=== PATIENT | female | born 1960 | race Caucasian/White ===

== ENCOUNTER → 2018-01-08 12:18 | Outpatient (CLI) | payer BC, SELFPAY ==
--- NOTE | 2018-01-08 12:26 | XR_ITS ---
EXAM: XR cervical spine 5V HISTORY: ITS.REASON: CERVICALGIA ORDERING PHYSICIAN: Evy Mortensen MD PATIENT AGE: 57 years COMPARISON: None FINDINGS: Normal alignment. No fracture or dislocation. No lytic or blastic change. No significant degenerative change. The disc spaces are preserved. There is some nonspecific calcification of the nuchal ligament at the C5 level IMPRESSION: Negative cervical spine
== END ==
PROVIDERS: PCP Family Medicine; Visit Provider Family Medicine
DX: M54.2 Cervicalgia (principal)
CPT/HCPCS: 72050

== ENCOUNTER → 2018-04-01 15:01 | Outpatient (CLI) | payer BC, SELFPAY ==
--- NOTE | 2018-04-01 15:06 | XR_ITS ---
XR chest 2V HISTORY: ITS.REASON: COUGH,RATTLING IN CHEST ORDERING PHYSICIAN: Evy Mortensen MD PATIENT AGE: 58 years COMPARISON: FINDINGS: The cardiomediastinal silhouette and pulmonary vascularity are within normal limits. Patchy infiltrate is present in the left lower lobe. The remaining lungs are clear. The hill are slightly prominent raising the suspicion of mild adenopathy. Follow-up recommended. Calcific tendinitis is present in both shoulders. There are degenerative changes in the thoracic spine. IMPRESSION: Left lower lobe pneumonia with possible hilar adenopathy. Recommend follow-up to confirm stability and/or resolution
== END ==
PROVIDERS: PCP Family Medicine; Visit Provider Family Medicine
DX: R05 Cough (principal); R09.89 Other specified symptoms and signs involving the circulatory and respiratory systems
CPT/HCPCS: 71046

== ENCOUNTER → 2018-04-16 15:28 | Outpatient (CLI) | payer BC, SELFPAY ==
--- NOTE | 2018-04-16 15:39 | XR_ITS ---
XR chest 2V HISTORY: ITS.REASON: PNEUMONIA ORDERING PHYSICIAN: Evy Mortensen MD PATIENT AGE: 58 years COMPARISON: 04/01/2019 FINDINGS: The cardiomediastinal silhouette and pulmonary vascularity are within normal limits. Left lower lobe pneumonia has shown improvement. There remains some atelectatic change with patchy density in the left lower lobe. Left hilum remains prominent. Hilar adenopathy or hilar mass is considered. Chest CT with contrast may be of further value.. No acute bony abnormalities. IMPRESSION: Improvement in left lower lobe pneumonia with some residual atelectatic change in the left lower lobe Persistent prominence of left hilum consistent with adenopathy or mass. CT with contrast may be of further value
== END ==
PROVIDERS: PCP Family Medicine; Visit Provider Family Medicine
DX: J18.1 Lobar pneumonia, unspecified organism (principal)
CPT/HCPCS: 71046

== ENCOUNTER → 2018-04-23 12:53 | Outpatient (CLI) | payer BC, SELFPAY ==
[2018-04-23 13:13] LABS: Blood Urea Nitrogen 16 mg/dL (7-18); Estimated Glomerular Filt Rate 74 ml/min (>60); GFR (African American) 89 ML/MIN (>60)
--- NOTE | 2018-04-23 13:21 | CT_ITS ---
CT chest w con HISTORY: Pneumonia, hilar adenopathy, abnormal chest x-ray ITS.REASON: ABNORMAL CXR,PNEUMONIA ORDERING PHYSICIAN: Evy Moretnsen MD PATIENT AGE: 58 years COMPARISON: 04/16/2018 TECHNIQUE: Axial images obtained following the administration of 75 mL of Isovue 370 . Sagittal, and coronal reformatted images are also generated and reviewed. All CT scans at the facility use one or more dose reduction, viz: automated exposure control; ma/kV adjustment per patient size (including targeted exams where dose is matched to indication; i.e. head); or iterative reconstruction technique. FINDINGS: There are scattered small mediastinal and hilar lymph nodes. Normal heart size. No evidence of pericardial effusion. No dominant adenopathy is evident. No hilar mass. There are some mild atelectatic or fibrotic changes in the right lower lobe. No central obstructing lesion. There is some residual increased density in the left lower lobe consistent with residual peribronchial inflammatory changes with atelectasis. No effusions. No suspicious pulmonary nodules. There is a small hiatal hernia. There is mild diffuse fatty liver infiltration. No acute bony anomalies. IMPRESSION: 1. Scattered small mediastinal and hilar lymph nodes. No dominant adenopathy or central obstructing lesion evident. Prominence of left hilum on the radiograph is felt to be secondary to the small nodes in overlying hilar vasculature. The nodes measure up to 1.5 cm. 2. Mild residual postinflammatory changes in the left lower lobe with atelectasis and mild coarsening of the bronchovascular markings 3. Small hiatal hernia
== END ==
PROVIDERS: PCP Family Medicine; Visit Provider Family Medicine
DX: J18.1 Lobar pneumonia, unspecified organism (principal)
CPT/HCPCS: 36415; 71260; 82565; 84520; Q9967

== ENCOUNTER → 2018-06-05 15:34 | Outpatient (POV) | payer BC, SELFPAY | DX: Z00.00 Encounter for general adult medical examination without abnormal findings (principal) ==

== ENCOUNTER → 2018-07-16 14:17 | Outpatient (CLI) | payer BC, SELFPAY ==
--- NOTE | 2018-07-16 14:23 | XR_ITS ---
XR shoulder RT min 2V HISTORY: ITS.REASON: ACUTE RT SHOULDER PAIN ORDERING PHYSICIAN: Evy Mortensen MD PATIENT AGE: 58 years Comparison: None FINDINGS: Moderate lobular calcification is noted superior to the humeral head superior to the greater tuberosity and along the posterior aspect of the humeral head. Consistent with calcific tendinitis of the supraspinatus and infraspinatus tendons. No acute fracture or dislocation evident. There is mild downsloping of the acromion with mild subacromial stenosis. IMPRESSION: Calcific tendinitis of the right shoulder Mild subacromial stenosis
--- NOTE | 2018-07-16 14:24 | XR_ITS ---
XR chest 2V HISTORY: December.REASON: HX PNEUMONIA ORDERING PHYSICIAN: Evy Mortensen MD PATIENT AGE: 58 years COMPARISON: [id number] FINDINGS: The cardiomediastinal silhouette and pulmonary vascularity are within normal limits. There remains mild prominence of left hilum which is not significantly changed Minimal atelectatic or fibrotic changes are present in the left lung base. Patchy density noted in the right midlung overlying the third rib and may be due to summation artifact from rib and vessel. The remaining lungs are clear. Mild kyphosis of the thoracic spine with mild degenerative change in the thoracic spine. IMPRESSION: No acute finding. Minimal left basilar atelectasis or fibrosis. Overall no change mild prominence of the left hilum
== END ==
PROVIDERS: PCP Family Medicine; Visit Provider Family Medicine
DX: M25.511 Pain in right shoulder (principal); Z87.01 Personal history of pneumonia (recurrent)
CPT/HCPCS: 71046; 73030

== ENCOUNTER → 2018-08-01 14:26 | Outpatient (POV) | payer BC, SELFPAY | PROVIDERS: Visit Provider Dermatology | DX: Z00.00 Encounter for general adult medical examination without abnormal findings (principal) ==

== ENCOUNTER 2019-04-09 14:00 | Outpatient (RCR) | payer BC, SELFPAY | END 2019-04-09 14:05 | disposition home or self-care (01) | LOC: PT 14:00 | PROVIDERS: Visit Provider Internal Medicine | DX: M25.511 Pain in right shoulder (principal); M25.551 Pain in right hip; M15.9 Polyosteoarthritis, unspecified | CPT/HCPCS: 97010; 97014; 97033; 97035; 97110; 97163; G0283 ==

== ENCOUNTER → 2020-08-04 14:59 | Outpatient (CLI) | payer BC, SELFPAY | PROVIDERS: PCP Family Medicine; Visit Provider Family Medicine | DX: R00.0 Tachycardia, unspecified (principal) | CPT/HCPCS: 93225; 93226 ==

== ENCOUNTER → 2020-08-09 12:45 | Outpatient (CLI) | payer BC, SELFPAY ==
--- NOTE | 2020-08-09 | CA_ITS ---
APPROVED REPORT EXAM: Comprehensive 2D, Doppler, and color-flow Echocardiogram [employer] Receptionist: Abbi Lombardo CRT Ht: 5 ft 4 in Wt: 195lbs BSA: 1.94 BP: 130/80 mmHg Indications: SVT, Tachycardia 2D Dimensions LVOT 1.94 cm (M/F) 1.5-2.5 M-Mode Dimensions RVDd 2.03 cm (0.9-2.6) LVDd 4.84 cm (3.5-5.7) LVDs 3.21 cm (3.5-5.7) IVSd 1.87 cm (0.6-1.1) PWd 0.69 cm (0.6-1.1) EF (Teich) 62.30% FS 33.70% EDV (Teich) 109.60 mL ESV (Teich) 41.30 mL LV Diastology E/A Ratio 1.27 Mitral Valve MV A Velocity 73.00 (40-130 cm/s) Left Ventricle Left atrium is mildly enlarged, left ventricle is normal size, left ventricle wall thickness is upper limit of the normal, there is preserved left ventricular systolic function, visually estimated ejection fraction 55% with no regional wall motion abnormality. Grade 1 diastolic dysfunction seen with tissue Doppler evidence of raise left atrial pressure. Right Ventricle Right atrium and right ventricle are normal size and contractility. Aortic Valve Aortic valve is minimally thickened and fibrosed, there is no aortic stenosis or aortic insufficiency. Mitral Valve Mitral valve is grossly normal, there is mild mitral regurgitation. Tricuspid Valve Tricuspid valve is grossly normal, there is mild tricuspid regurgitation, tricuspid regurgitation jet velocity is inadequate for calculation of the right ventricular systolic pressure. Pulmonic Valve Pulmonic valve is poorly visualized. Great Vessels Aortic root is normal size. Pericardium No significant pericardial effusion noted. Conclusion 1. Mildly enlarged left atrium, normal left ventricular size, mild concentric left ventricular hypertrophy, visually estimated ejection fraction 55% with no regional wall motion abnormality, grade 1 diastolic dysfunction seen with tissue Doppler evidence of raise left atrial pressure. 2. Mild mitral and tricuspid regurgitation. 3. No significant pericardial effusion noted. Electronically signed by : Basil Fry, 08/09/2020 21:53:06
== END ==
PROVIDERS: PCP Family Medicine; Visit Provider Family Medicine
DX: R00.0 Tachycardia, unspecified (principal)
CPT/HCPCS: 93306

== ENCOUNTER → 2021-01-05 12:52 | Outpatient (POV) | payer BC, SELFPAY | DX: Z00.00 Encounter for general adult medical examination without abnormal findings (principal) ==

== ENCOUNTER → 2021-02-02 15:46 | Outpatient (POV) | payer BC, SELFPAY | DX: Z00.00 Encounter for general adult medical examination without abnormal findings (principal) ==

== ENCOUNTER → 2022-02-17 13:03 | Outpatient (CLI) | payer BC, SELFPAY | PROVIDERS: Visit Provider Obstetrics & Gynecology | DX: N39.0 Urinary tract infection, site not specified (principal) | CPT/HCPCS: 87086 ==

== ENCOUNTER 2022-12-08 10:51 | Emergency (ER) | payer BC, SELFPAY ==
[2022-12-08 10:52] VITALS: BP 169/87; PULSE 84; RESP 18; TEMP 37.1; O2SAT 97; BMI 37.8
--- NOTE | 2022-12-08 11:30 | PC.NURSE ---
lab here for blood draw
[2022-12-08 11:59] LABS: Alanine Aminotransferase 26 U/L (12-78); Albumin Level 4.2 g/dl (3.5-5.0); Albumin/Globulin Ratio 1.2 (1.1-1.8); Alkaline Phosphatase 83 U/L (38-126); Aspartate Amino Transferase 31 U/L (14-36); Bilirubin,Total 0.5 mg/dl (0.2-1.3); Blood Urea Nitrogen 14 mg/dl (7-17); Calcium 8.7 mg/dl (8.4-10.2); Carbon Dioxide 26 mmol/L (22.0-30.0); Chloride 104 mmol/L (98-107); Creatinine Clearance Estimated 92 mL/min (50-200); Estimated Glomerular Filt Rate 73 ml/min (>60); GFR (African American) 88 ML/MIN (>60); Globulin 3.5 g/dL (1.3-3.2); Glucose 93 mg/dl (74-100); Sodium 138 mmol/L (136-145); Total Protein,Serum 7.7 g/dl (6.3-8.2)
[2022-12-08 12:51] LABS: Basophils # 0.1 K/mm3 (0-0.2); Basophils % 0.9 % (0.1-2.0); Eosinophils # 0.4 K/mm3 (0.0-0.4); Eosinophils % 2.9 % (0.1-12.0); Hematocrit 42.6 % (37.0-47.0); Hemoglobin 13.1 g/dL (12.2-16.2); Lymphocytes # 2.1 K/mm3 (0.7-4.5); Lymphocytes % 16.8 % (10-50); Mean Corpuscular HGB Conc 30.7 g/dL (31.8-35.4); Mean Corpuscular Hemoglobin 27.9 pg (27.0-31.2); Mean Corpuscular Volume 91.1 fl (81-99); Mean Platelet Volume 8.1 fl (7.4-10.4); Monocytes # 0.7 K/mm3 (0.1-1.0); Monocytes % 5.6 % (1.7-9.3); Neutrophils # 9.2 K/mm3 (1.8-7.8); Neutrophils % 73.8 % (37.0-80.0); Platelet Count 447 K/mm3 (142-424); Red Blood Count 4.68 M/mm3 (4.20-5.40); White Blood Count 12.5 K/mm3 (4.8-10.8)
[2022-12-08 12:58] LABS: Activated Partial Thrombo Time 26.4 seconds (22.8-30.6); Fibrinogen 425 mg/dL (229.9-363.5); INR 0.96 (0.9-1.1); Prothrombin Time 10.4 seconds (10.1-12.5)
--- NOTE | 2022-12-08 13:05 | [facility].EDGENADL ---
Discharge Plan Disposition Patient Disposition: Home, Self-Care Condition: Fair Prescriptions Prescriptions: New clindamycin HCl 300 mg capsule 300 mg PO TID 10 Days Qty: 30 0RF fluocinonide 0.1 % cream 1 applic topical BID Qty: 60 0RF Discontinued clobetasol 0.05 % ointment 1 applic topical HS Qty: 45 0RF No Action pantoprazole 40 mg tablet,delayed release (DR/EC) 40 mg PO DAILY meloxicam 15 mg tablet 15 mg PO DAILY loratadine [Claritin] 10 mg tablet 10 mg PO DAILY triamcinolone acetonide 55 mcg/actuation nasal spray,aerosol 55 mcg/actuation aerosol INTRANASAL lidocaine 5 % ointment 1 applic TOPICAL TID PRN (Reason: pain) Qty: 240 2RF escitalopram oxalate 20 mg tablet 20 mg PO atenolol 100 mg tablet 100 mg PO Children's Sleep (melatonin) 1 mg tablet,chewable 2 mg PO cholecalciferol (vitamin D3) [Vitamin D3] 50 mcg (2,000 unit) capsule 50 mcg PO DAILY hydrochlorothiazide 12.5 mg tablet 12.5 mg PO levothyroxine [Synthroid] 50 mcg tablet 50 mcg PO DAILY clotrimazole 1 % cream 1 applic topical BID 28 Days Qty: 30 0RF nitrofurantoin monohyd/m-cryst [Macrobid] 100 mg capsule 100 mg PO BID Qty: 14 0RF Rx Instructions: must administer with a meal/food estradiol 0.5 mg tablet 0.5 mg PO DAILY Qty: 90 4RF Referrals Follow up/Referrals: Evy Mortensen MD [Primary Care Provider] - See instructions Clinical Impressions Clinical Impression: Superficial granulomatous pyoderma Instructions Patient Instructions: Pyoderma Gangrenosum Discharge ED Provider: Ron Arauz General Adult HPI General Chief complaint: Wound/Laceration Stated complaint: open wound on Rt leg, irritated Time Seen by Provider: 12/08/22 11:00 Mode of Arrival: Ambulatory Source of Information: Patient Limitations: No Limitations Description of Symptoms (Recalled from ER Triage Doc. by RN): c/o dime size sore on right leg that is red and swelling this morning when she woke up. History of Present Illness HPI narrative: Patient is a 62-year-old female with no pertinent past medical history who presents with concern for right leg wound. She says that she woke up this morning and noted some swelling to her right leg that also looks like a wound has come up over this time. She denies any trauma to the region. She says that it is still swollen. She denies much pain to the area. Denies any fever or chills. Denies any other areas of concern. Related Data Home Medications Medication Instructions Recorded Confirmed meloxicam 15 mg tablet 15 mg PO DAILY 06/29/20 11/15/22 pantoprazole 40 mg tablet,delayed 40 mg PO DAILY 06/29/20 11/15/22 release loratadine 10 mg tablet (Claritin) 10 mg PO DAILY 03/23/22 11/15/22 triamcinolone acetonide 55 mcg intranasal 03/23/22 11/15/22 mcg/actuation nasal spray,aerosol atenolol 100 mg tablet 100 mg PO 04/07/22 11/15/22 escitalopram oxalate 20 mg tablet 20 mg PO 04/07/22 11/15/22 melatonin 1 mg chewable tablet 2 mg PO 04/07/22 11/15/22 (Children's Sleep (melatonin)) cholecalciferol (vitamin D3) 50 50 mcg PO DAILY 11/02/22 11/15/22 mcg (2,000 unit) capsule (Vitamin D3) hydrochlorothiazide 12.5 mg tablet 12.5 mg PO 11/02/22 11/15/22 levothyroxine 50 mcg tablet 50 mcg PO DAILY 11/02/22 11/15/22 (Synthroid) Previous Rx's Medication Instructions Recorded lidocaine 5 % topical ointment 1 applic topical TID PRN pain #240 03/23/22 grams estradiol 0.5 mg tablet 0.5 mg PO DAILY #90 tabs 08/14/22 clotrimazole 1 % topical cream 1 applic topical BID 4 weeks #30 11/02/22 grams nitrofurantoin 100 mg PO BID #14 caps 11/08/22 monohydrate/macrocrystals 100 mg capsule (Macrobid) clindamycin HCl 300 mg capsule 300 mg PO TID 10 days #30 caps 12/08/22 fluocinonide 0.1 % topical cream 1 applic topical BID #60 grams 12/08/22 Allergies Allergy/AdvReac Type Severity Re
[2022-12-08 13:48] VITALS: BP 157/77; PULSE 76; RESP 20; TEMP 36.8; O2SAT 96
== END 2022-12-08 13:49 | disposition home or self-care (01) ==
PROVIDERS: Emergency Provider Student in an Organized Health Care Education/Training Program; PCP Family Medicine
DX: L88 Pyoderma gangrenosum (principal); S81.801A Unspecified open wound, right lower leg, initial encounter; X58.XXXA Exposure to other specified factors, initial encounter; Z87.42 Personal history of other diseases of the female genital tract; Z90.710 Acquired absence of both cervix and uterus; Z23 Encounter for immunization
CPT/HCPCS: 36415; 80053; 85025; 85384; 85610; 85730; 90471; 90714; 99284

== ENCOUNTER → 2022-12-13 12:52 | Outpatient (CLI) | payer BC, SELFPAY ==
[2022-12-13 12:59] LABS: MANUAL DIFFERENTIAL MANUAL DIFFERENTIAL (MANUAL DIFF)
[2022-12-13 13:41] LABS: Basophils # 0.1 K/mm3 (0-0.2); Basophils % 0.8 % (0.1-2.0); Eosinophils # 0.6 K/mm3 (0.0-0.4); Eosinophils % 6.1 % (0.1-12.0); Hematocrit 42.4 % (37.0-47.0); Hemoglobin 13.4 g/dL (12.2-16.2); Lymphocytes # 2.3 K/mm3 (0.7-4.5); Lymphocytes % 23.3 % (10-50); Mean Corpuscular HGB Conc 31.7 g/dL (31.8-35.4); Mean Corpuscular Hemoglobin 28.1 pg (27.0-31.2); Mean Corpuscular Volume 88.6 fl (81-99); Mean Platelet Volume 7.8 fl (7.4-10.4); Monocytes # 0.6 K/mm3 (0.1-1.0); Monocytes % 5.9 % (1.7-9.3); Neutrophils # 6.3 K/mm3 (1.8-7.8); Neutrophils % 63.9 % (37.0-80.0); Platelet Count 421 K/mm3 (142-424); Red Blood Count 4.78 M/mm3 (4.20-5.40); Red Cell Distribution Width 14.7 % (11.5-17.5); White Blood Count 9.9 K/mm3 (4.8-10.8)
[2022-12-13 14:11] LABS: Alanine Aminotransferase 29 U/L (12-78); Albumin Level 4.1 g/dl (3.5-5.0); Albumin/Globulin Ratio 1.4 (1.1-1.8); Alkaline Phosphatase 85 U/L (38-126); Anion Gap 12.9 mEq/L (5-15); Aspartate Amino Transferase 33 U/L (14-36); Bilirubin,Total 0.3 mg/dl (0.2-1.3); Blood Urea Nitrogen 11 mg/dl (7-17); Calcium 8.7 mg/dl (8.4-10.2); Carbon Dioxide 25 mmol/L (22.0-30.0); Chloride 102 mmol/L (98-107); Estimated Glomerular Filt Rate 73 ml/min (>60); GFR (African American) 88 ML/MIN (>60); Glucose 98 mg/dl (74-100); Potassium 3.9 mmoL/L (3.5-5.1); Sodium 136 mmol/L (136-145); Total Protein,Serum 7.1 g/dl (6.3-8.2)
[2022-12-13 14:16] LABS: Erythrocyte Sedimentation Rate 39 mm/hr (0-30)
[2022-12-13 17:36] LABS: Eosinophils % 3 % (0-3); Lymphocytes % 37 % (10-50); Monocytes % 3 % (2-9); Neutrophils % 57 % (42-76); RBC Morphology Normal; Total Cells Counted 100
[2022-12-13 17:37] LABS: Platelet Estimate Normal
== END ==
PROVIDERS: PCP Family Medicine; Visit Provider Family Medicine
DX: T63.301A Toxic effect of unspecified spider venom, accidental (unintentional), initial encounter (principal)
CPT/HCPCS: 36415; 80053; 85007; 85014; 85018; 85048; 85049; 85651